=== PATIENT | female | born 1970 | race Two or more races ===

== ENCOUNTER 2020-01-24 09:57 | Emergency (ER) | payer MEDICAID ==
[~2020-01-24] VITALS: Ht 165.1 cm; Wt 113.6 kg
[2020-01-24 10:06] VITALS: BP 154/92
== END 2020-01-24 10:56 | disposition home or self-care (01) ==
LOC: ER 09:59
DX: U07.1 COVID-19 (principal); I10 Essential (primary) hypertension
CPT/HCPCS: 36415; 87635; 99283

== ENCOUNTER 2022-09-18 20:13 | Emergency (ER) | payer MEDICAID ==
[~2022-09-18] VITALS: Ht 165.1 cm; Wt 129.0 kg
[2022-09-18 20:40] VITALS: TEMP 98
[2022-09-18 20:50] LABS: BASOPHILS % (AUTO) 0.2 % (0-1); EOSINOPHILS % (AUTO) 0 % (0-6); HEMATOCRIT 41.9 % (35.0-45.0); HEMOGLOBIN 14.2 g/dl (12.0-16.0); LYMPHOCYTES # (AUTO) 1.9 X10'3 (1.1-4.8); LYMPHOCYTES % (AUTO) 17.4 % (21-51); MEAN CORPUSCULAR HEMOGLOBIN 29.7 PG (27.0-31.0); MEAN CORPUSCULAR VOLUME 87.2 FL (78-98); MEAN PLATELET VOLUME 9.7 FL (7.4-10.4); MONOCYTES # (AUTO) 0.2 X10'3 (0-0.9); MONOCYTES % (AUTO) 1.8 % (2-12); NEUTROPHILS # (AUTO) 8.7 X10'3 (1.8-7.7); NEUTROPHILS % (AUTO) 80.6 % (42-75); PLATELET COUNT 273 X10'3 (140-440); RED CELL DISTRIBUTION WIDTH 14.4 % (11.5-14.5); WHITE BLOOD COUNT 10.8 X10'3 (4.5-11.0)
[2022-09-18 21:01] LABS: APTT 25 SECONDS (22-32)
[2022-09-18 21:13] LABS: ALANINE AMINOTRANSFERASE 37 U/L (12-78); ALBUMIN 3.8 G/DL (3.4-5.0); ALKALINE PHOSPHATASE 102 IU/L (46-116); ANION GAP 10 (8-16); ASPARTATE AMINO TRANSFERASE 25 U/L (10-37); BILIRUBIN,TOTAL 0.4 MG/DL (0.1-1.0); BLOOD UREA NITROGEN 20 MG/DL (7-18); BUN/CREATININE RATIO 14.4 (10.0-20.0); CALCIUM 9.4 MG/DL (8.5-10.1); CHLORIDE 102 MMOL/L (99-107); CREATININE 1.39 MG/DL (0.40-0.90); GLUCOSE 150 MG/DL (70-104); POTASSIUM 4.3 MMOL/L (3.5-5.1); SODIUM 139 MMOL/L (135-145); TOTAL CARBON DIOXIDE 26.6 MMOL/L (24-32); TOTAL PROTEIN 7.8 G/DL (6.4-8.2); eGFR 40 ML/MIN
--- NOTE | 2022-09-18 21:39 | NUR ---
GOT INTO AN ARGUMENT FRIDAY, HEADACHE ON FRIDAY. FELT LIKE TONGUE WAS NUMB/BURNING. FRIDAY WENT TO [facility]. GAVE HER STEROIDS BELS PALSY
[2022-09-18] MEDS ORDERED: PRED20TA PO (21:51)
[2022-09-18] MEDS ORDERED: VALA100031 PO (21:51)
[2022-09-18] MEDS ORDERED: METO5TAB98 (21:51)
[2022-09-18] MEDS ORDERED: ketorolac trometh inj. 60 MG/2 ML VIAL IM ONE (23:35)
[2022-09-18] MEDS ORDERED: acetaminophen 325mg tablet PO ONE (23:35)
[2022-09-18] MEDS ORDERED: ondansetron 4mg rapidly disintigrating tab PO ONE (23:35)
[2022-09-18] MEDS ORDERED: proCHLORperazine 10 MG/2 ml inj IM ONE (23:35)
[2022-09-18] MEDS ORDERED: ONDA8TAB13 PO (23:40)
[2022-09-18] MEDS ORDERED: ACET-1025 PO (23:40)
[2022-09-18] MEDS ORDERED: IBUP-1984 PO (23:40)
[2022-09-19] MEDS ORDERED: DEXT15DR7 OP (01:07)
[2022-09-19 01:15] VITALS: BP 126/68; PULSE 52; RESP 18; O2SAT 94
== END 2022-09-19 01:16 | disposition home or self-care (01) ==
LOC: ER 20:14
DX: R51.9 Headache, unspecified (principal); R11.0 Nausea; G43.909 Migraine, unspecified, not intractable, without status migrainosus; Z88.0 Allergy status to penicillin; Z79.899 Other long term (current) drug therapy; Z79.2 Long term (current) use of antibiotics
CPT/HCPCS: 36415; 70450; 71045; 80053; 83880; 84484; 85025; 85610; 85730; 93005; 96372; 99285; J0780; J1885; A6410